=== PATIENT | female | born 1985 | race Caucasian/White ===

== ENCOUNTER 2022-02-17 08:00 | Outpatient (CLI) | payer BC, OTHER ==
--- NOTE | 2022-02-17 19:11 | XRAY Report ---
PROCEDURE: Ankle 3 View LT INDICATIONS: LEFT ANKLE PAIN AFTER FALL TECHNIQUE: 3 views of the ankle were acquired. COMPARISON: None FINDINGS: Bones: Oblique fracture of the distal tibia. Distal fracture fragment is mildly displaced laterally a nd dorsally. Soft tissues: No tibiotalar joint effusion. Achilles tendon appears normal. IMPRESSION: Distal tibia fracture. Reviewed by: Natalia Hu MD, PhD on 02/17/2022 7:10 PM PDT Approved by: Natalia Hu MD, PhD on 02/17/2022 7:10 PM PDT Station ID: [id number]
--- NOTE | 2022-02-18 19:20 | XRAY Report ---
PROCEDURE: Foot 2 View LT INDICATIONS: LEFT FOOT PAIN AFTER FALL TECHNIQUE: 1 view of the foot were acquired. COMPARISON: X-ray ankle 02/17/2022. FINDINGS: Single lateral view of the foot demonstrates an oblique fracture within the distal tibia, appearing u nchanged compared to prior exam. Ankle mortise alignment is intact. IMPRESSION: Unchanged appearance of oblique, comminuted distal tibial fracture. Reviewed by: Sissy Hawk MD on 02/18/2022 7:18 PM PDT Approved by: Sissy Hawk MD on 02/18/2022 7:18 PM PDT Station ID: [id number]
== END 2022-02-17 23:59 | disposition home or self-care (01) ==
LOC: DI.S 08:00
PROVIDERS: ATTEND Physician Assistant Medical
DX: S82.392A Other fracture of lower end of left tibia, initial encounter for closed fracture (principal)

== ENCOUNTER 2023-01-02 08:00 | Outpatient (CLI) | payer OTHER | END 2023-01-02 23:59 | disposition home or self-care (01) | LOC: LAB 08:00 | PROVIDERS: ATTEND Physician Assistant Medical | DX: N39.0 Urinary tract infection, site not specified (principal) | CPT/HCPCS: 87077; 87086; 87181 ==

== ENCOUNTER 2023-08-28 08:00 | Outpatient (CLI) | payer OTHER ==
[2023-08-28 20:34] LABS: BILIRUBIN,URINE NEGATIVE (NEGATIVE); GLUCOSE, URINE (UA) NEGATIVE (NEGATIVE); KETONES,URINE (UA) NEGATIVE (NEGATIVE); LEUKOCYTE ESTERASE, URINE NEGATIVE (NEGATIVE); NITRITE,URINE NEGATIVE (NEGATIVE); OCCULT BLOOD,URINE TRACE-INTA (NEGATIVE); PROTEIN,URINE NEGATIVE (NEGATIVE); UROBILINOGEN,URINE 0.2 (NORMAL) E.U./dL (NORMAL)
[2023-08-28 20:58] LABS: BACTERIA,URINE None Seen /HPF (None Seen); CLARITY,URINE CLEAR (CLEAR); RBC,URINE 0-5 /HPF (0-5); SQUAMOUS EPITHELIAL CELL,UR RARE Squamous (<= Few); WBC,URINE 0-3 /HPF (0-5)
[2023-08-28 22:44] LABS: CHLAMYDIA TRACHOMATIS DNA NEGATIVE (NEGATIVE); NEISSERIA GONORRHOEAE DNA NEGATIVE (NEGATIVE)
[2023-08-29 13:11] LABS: BACTERIAL VAGINOSIS DNA POSITIVE (NEGATIVE); CANDIDA GLABRATA DNA NEGATIVE (NEGATIVE); CANDIDA GROUP DNA NEGATIVE (NEGATIVE); CANDIDA KRUSEI DNA NEGATIVE (NEGATIVE); TRICHOMONAS VAGINALIS DNA NEGATIVE (NEGATIVE)
== END 2023-08-28 23:59 | disposition home or self-care (01) ==
LOC: LAB.S 08:00
PROVIDERS: ATTEND Physician Assistant
DX: N76.0 Acute vaginitis (principal); R31.9 Hematuria, unspecified
CPT/HCPCS: 81001; 81514; 87086; 87491; 87591; 87661